=== PATIENT | female | born 1935 | race Native Hawaiian/Other Pacific Islander ===

== ENCOUNTER 2016-08-13 07:30 | Day surgery (SDC) | payer MEDICARE, MEDICAID ==
[2016-08-04 11:16] VITALS: BMI 19.6
[~2016-08-13 07:30] MED LIST: Lactated Ringer's 500 ML IV ONE; Phenylephrine 2.5% Opht Soln OS SCH; Tropicamide 1% Opht SOLUTION OS SCH; acetaZOLAMIDE 500 mg SR Cap PO ONE
[2016-08-13] MEDS ORDERED: Povidone Iodine Ophthalmic 5% Soln ONE (07:33)
[2016-08-13] MEDS ORDERED: Tetracaine 0.5% Ophth (OR ONLY) ONE (07:34)
[2016-08-13] MEDS ORDERED: Carbachol 0.01% IO ONE (07:34)
[2016-08-13] MEDS ORDERED: Tobramycin/Dexamethasone OPHT OINT ONE (07:35)
[2016-08-13] MEDS ORDERED: Chondroitin/Hyaluronate Opth Syringe KIT (0.55 ml-0.5 ml) IO ONE (07:35)
[2016-08-13] MEDS ORDERED: Hyaluronidase Human, Recombi 150 U/ML VIAL ONE (07:35)
[2016-08-13] MEDS ORDERED: Lidocaine 2% Inj (20ml) ONE (08:04)
[2016-08-13] MEDS ORDERED: Lactated Ringer's 1,000 ML IV ONE ×2 (08:30→10:00)
[2016-08-13 08:54] VITALS: RESP 20; O2SAT 98
[2016-08-13] MEDS ORDERED: Midazolam 2 MG/2 ML VIAL ONE (10:07)
[2016-08-13 11:34] VITALS: BP 153/68; PULSE 76; TEMP 98
--- NOTE | 2016-08-13 11:57 | OP ---
PROCEDURE DATE: 08/13/2016 PREOPERATIVE DIAGNOSIS: Mature cataract, left eye. POSTOPERATIVE DIAGNOSIS: Mature cataract, left eye. OPERATIVE PROCEDURE: Phacoemulsification of the left eye, insertion of posterior chamber implant. SURGEON: Adma Au MD. CO-SURGEON: Lee Cano MD. ANESTHESIA: Local IV sedation. PROCEDURE: The patient was brought into the operating room, placed in supine position, prepped and dr aped in the usual fashion for ophthalmic surgery. Lid speculum inserted, lids and exposin g globe. A side port incision was made superiorly and inferiorly with a disposable sharp blade. Ant erior chamber was filled with Viscoat. A near clear corneal incision was made temporally with a 2.75 millimeter keratome. Capsulorrhexis was then performed with Utrata forceps. Hydrodissection edis d out with balanced salt solution. Nucleus was phacoemulsified. Remaining cortical fragments were r emoved with a split irrigation and aspiration system. The capsular sac was filled with Provisc. A p osterior chamber lens was then injected into the capsular sac and rotated into horizontal position. Provisc was aspirated out of the anterior chamber. The pupil was constricted with Miochol. The woun d was found to be watertight. Topical Betadine, Timoptic and TobraDex ointment and pressure patch we re applied. The patient tolerated the procedure well. Adam Au MD cc: 249 TT: 08/13/2016 11:56:50
== END 2016-08-13 12:25 | disposition home or self-care (01) ==
LOC: C.SDS 07:30
PROVIDERS: ATTEND Ophthalmology
DX: H26.9 Unspecified cataract (principal); I10 Essential (primary) hypertension; Z79.82 Long term (current) use of aspirin; I48.91 Unspecified atrial fibrillation; M19.90 Unspecified osteoarthritis, unspecified site; I73.9 Peripheral vascular disease, unspecified; I51.7 Cardiomegaly
CPT/HCPCS: 66984; C1713; J2250; J3010; J3470; J7120; V2632

== ENCOUNTER 2017-05-04 12:04 | Emergency (ER) | payer MEDICARE, MEDICAID ==
[2017-05-04 12:04] VITALS: BMI 19.6
[2017-05-04 12:19] VITALS: O2SAT 100
--- NOTE | 2017-05-04 13:25 | C.PDOC ---
History Of Present Illness 81 year old female with a Hx of spondylosis presents to the ER with a complaint of headache and neck pain for the past 2 days that has worsened today, causing the pain to radiate down the arms. Denies heavy lifting, fever, or abdominal pain. Time Seen by Provider: 05/04/17 12:29 Chief Complaint (Nursing): Headache History Per: Patient History/Exam Limitations: no limitations Onset/Duration Of Symptoms: Days Current Symptoms Are (Timing): Still Present Preceeding Symptoms: None Associated Symptoms: denies: Photophobia, Blurred Vision, Nausea, Vomiting, Extremity Weakness Recent travel outside of the [place]: No Past Medical History Reviewed: Historical Data, Nursing Documentation, Vital Signs Vital Signs: Last Vital Signs Temp 99.2 F 05/04/17 12:15 Pulse 114 H 05/04/17 12:15 Resp 18 05/04/17 12:15 BP 177/79 H 05/04/17 12:15 Pulse Ox 100 05/04/17 15:25 - Medical History PMH: HTN - [facility] Procedures CATARAC PHACOEMULS/ASPIR (11/22/14) DRAINAGE OF RIGHT KNEE JOINT, PERCUTANEOUS APPROACH, DIAGN (02/24/16) INSERT LENS AT CATAR EXT (11/22/14) Family History: States: Unknown Family Hx - Social History Hx Alcohol Use: No Hx Substance Use: No - Immunization History Hx Tetanus Toxoid Vaccination: No Hx Influenza Vaccination: No Hx Pneumococcal Vaccination: No Review Of Systems Constitutional: Negative for: Fever, Chills Cardiovascular: Negative for: Chest Pain, Palpitations Respiratory: Negative for: Shortness of Breath Gastrointestinal: Negative for: Abdominal Pain Musculoskeletal: Positive for: Neck Pain Neurological: Positive for: Headache. Negative for: Weakness, Numbness Physical Exam - Physical Exam Appears: Non-toxic, Other (Elderly) Skin: Normal Color, Warm, Dry Head: Atraumatic, Normacephalic Eye(s): bilateral: Normal Inspection Oral Mucosa: Moist Neck: Other (Moderate trapezius muscle spasm, ROM of neck limited due to pain) Chest: Symmetrical, No Tenderness Cardiovascular: Rhythm Regular Respiratory: Normal Breath Sounds, No Rales, No Rhonchi, No Wheezing Gastrointestinal/Abdominal: Soft, No Tenderness Neurological/Psych: Oriented x3, Normal Speech, Normal Motor, Normal Sensation ED Course And Treatment O2 Sat by Pulse Oximetry: 100 (Room air) Pulse Ox Interpretation: Normal - CT Scan/US CT Cervical Spine Other Rad Studies (CT/US): Read By Radiologist, Radiology Report Reviewed CT/US Interpretation: IMPRESSION: No evidence of acute fracture or dislocation. Straightening of the cervical spine which could be due to muscle spasm. Severe degenerative disc changes associated with multilevel osteophyte disc bulging complex which resulting in spinal and neural foraminal narrowing. Severe narrowing of the intervertebral disc is spaces more prominent at C3-C4 and C5-C6. Medical Decision Making Medical Decision Making: CT cervical spine ordered. Naproxen and flexeril administered. Disposition - Disposition Referrals: Garland Landaverde MD [Medical Doctor] - Disposition: HOME/ ROUTINE Disposition Time: 15:21 Additional Instructions: Follow up with the medical doctor within 1-2 days. Return if worsened. 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 - Scribe Statement The provider has reviewed the documentation as recorded by the Scribe Adam Schwartz All medical record entries made by the Scribe were at my direction and personally dictated by me. I have reviewed the chart and agree that the record accurately reflects my personal performance of the history, physical exam, medical decision making, and the department course for this patient. I have also personally directed, reviewed, and agree with the discharge instructions and disposition.
[2017-05-04] MEDS ORDERED: Naproxen 550 mg Tab PO STA (13:26)
[2017-05-04] MEDS ORDERED: Naproxen 550 mg Tab PO ONE (13:39)
--- NOTE | 2017-05-04 15:09 | CT ---
PROCEDURE: CT Cervical Spine without contrast HISTORY: Neck pain radiating to the shoulders COMPARISON: None available. TECHNIQUE: Axial computed tomography images were obtained of the cervical spine without the use of intravenous contrast. Coronal and sagittal reformatted images were created and reviewed. Radiation dose: Total exam DLP = 186.84 mGy-cm. This CT exam was performed using one or more of the following dose reduction techniques: Automated exposure control, adjustment of the mA and/or kV according to patient size, and/or use of iterative reconstruction technique. FINDINGS: VERTEBRAE: No evidence of acute fracture. Mild grade 1 anterior spondylolisthesis of C2 relative to C3. Straightening of the cervical spine is also noted. DISCS/SPINAL CANAL/NEURAL FORAMINA: Multilevel spinal and neural foraminal narrowing due to disc bulging and ligament hypertrophy noted more prominent at C3-C4 and C4-C5. There is severe narrowing of the disc is space at C3-C4 and C5-C6 and to a less degree at C4-C5 and C7-C6 PARASPINAL SOFT TISSUES: Unremarkable. OTHER FINDINGS: None. IMPRESSION: No evidence of acute fracture or dislocation. Straightening of the cervical spine which could be due to muscle spasm. Severe degenerative disc changes associated with multilevel osteophyte disc bulging complex which resulting in spinal and neural foraminal narrowing. Severe narrowing of the intervertebral disc is spaces more prominent at C3-C4 and C5-C6.
[2017-05-04 15:37] VITALS: BP 138/83; PULSE 83; RESP 20; TEMP 97.9
== END 2017-05-04 15:40 | disposition home or self-care (01) ==
LOC: C.ER 12:04
DX: S16.1XXA Strain of muscle, fascia and tendon at neck level, initial encounter (principal); X58.XXXA Exposure to other specified factors, initial encounter; I10 Essential (primary) hypertension